=== PATIENT | male | born 1980 | race African-American/Black ===

== ENCOUNTER 2019-04-05 19:25 | Emergency (ER) | payer OTHER ==
[~2019-04-05] VITALS: Ht 193 cm; Wt 142.9 kg
[2019-04-05 19:39] VITALS: Ht 193 cm; Wt 142.9 kg
[2019-04-05 20:58] VITALS: BP 134/82
== END 2019-04-05 20:59 | disposition home or self-care (01) ==
LOC: ED 19:25
DX: S50.12XA Contusion of left forearm, initial encounter (principal); S80.01XA Contusion of right knee, initial encounter; S09.90XA Unspecified injury of head, initial encounter; V49.9XXA Car occupant (driver) (passenger) injured in unspecified traffic accident, initial encounter; M54.6 Pain in thoracic spine; Y93.I9 Activity, other involving external motion; Y92.413 State road as the place of occurrence of the external cause; Y99.8 Other external cause status